=== PATIENT | female | born 1970 | race Caucasian/White ===

== ENCOUNTER 2022-12-30 19:26 | Emergency (ER) | payer SELFPAY ==
[~2022-12-30] VITALS: Ht 160 cm; Wt 75.5 kg
[2022-12-30] MEDS ORDERED: PENI500T2 PO (20:23)
[2022-12-30] MEDS ORDERED: IBUP-1492 PO (20:23)
[2022-12-30 20:32] VITALS: BP 134/75
== END 2022-12-30 21:10 | disposition home or self-care (01) ==
LOC: EMS 19:29
DX: K13.79 Other lesions of oral mucosa (principal); K02.9 Dental caries, unspecified; F17.210 Nicotine dependence, cigarettes, uncomplicated; Z98.890 Other specified postprocedural states
CPT/HCPCS: 99283; Z7502